=== PATIENT | female | born 1995 | race Caucasian/White ===

== ENCOUNTER 2018-02-19 00:43 | Emergency (ER) | payer SELFPAY ==
[2018-02-19] MEDS ORDERED: TOBRAMYCIN SULF 0.3% OPTH OINT ONE (01:33)
[2018-02-19] MEDS ORDERED: TETRACAINE HCL 0.5% 2ML OPTH ONE (01:33)
[2018-02-19] MEDS ORDERED: FLUORESCEIN SODIUM 0.6 MG/WRAP ONE (01:34)
--- NOTE | 2018-02-19 01:49 | ER ---
Nurse's Notes [facility] Name: Aleshia Murphy Age: 22 yrs Sex: Female : 1995 Arrival Date: 02/19/2018 Time: 00:45 Bed 16 Private MD: Diagnosis: Injury of conjunctiva and corneal abrasion without foreign body Presentation: 02/19 00:54 Presenting complaint: Patient states: she slept in her contact lens 3 days ago and has aa1 been having redness, irritation, \T\ swelling to her R eye. Transition of care: patient was not received from another setting of care. Onset of symptoms was February 15, 2018. Risk Assessment: Do you want to hurt yourself or someone else? Patient reports no desire to harm self or others. Initial Sepsis Screen: Does the patient meet any 2 criteria? No. Patient's initial sepsis screen is negative. Does the patient have a suspected source of infection? No. Patient's initial sepsis screen is negative. Care prior to arrival: None. 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 - Social history:: Smoking status: Patient uses tobacco products, smokes one-half pack cigarettes per day. - Ebola Screening: : No symptoms or risks identified at this time. Screenin:58 Abuse screen: Denies threats or abuse. Denies injuries from another. Nutritional aa1 screening: No deficits noted. Tuberculosis screening: No symptoms or risk factors identified. Fall Risk None identified. Assessment: 00:58 General: Appears in no apparent distress. comfortable, Behavior is calm, cooperative, aa1 appropriate for age. Pain: Complains of pain in right eye. Neuro: Level of Consciousness is awake, alert, obeys commands, Oriented to person, place, time, situation, Gait is steady, Pupils are PERRLA. Respiratory: Airway is patent Respiratory effort is even, unlabored, Respiratory pattern is regular, symmetrical. GI: No signs and/or symptoms were reported involving the gastrointestinal system. : No signs and/or symptoms were reported regarding the genitourinary system. EENT: Sclera/Cornea are reddened in right eye Lid(s) swelling noted to R eye. Derm: Skin is intact, is healthy with good turgor, Skin is pink, warm \T\ dry. Musculoskeletal: Circulation, motion, and sensation intact. Capillary refill < 3 seconds. 01:57 Reassessment: No changes from previously documented assessment. Patient is alert, bb oriented x 3, equal unlabored respirations, skin warm/dry/pink. pt verbalized understanding of and agrees to plan of care discharge instructions given pt ambulated with steady gait to exit. Vital Signs: 00:56 BP 129 / 91; Pulse 102; Resp 18; Temp 98.1; Pulse Ox 96% on R/A; Weight 108.86 kg; aa1 Height 5 ft. 2 in. (157.48 cm); Pain 7/10; 01:58 BP 132 / 74; Pulse 91; Resp 16 S; Pulse Ox 97% on R/A; bb 00:56 Body Mass Index 43.90 (108.86 kg, 157.48 cm) aa1 ED Course: 00:45 Patient arrived in ED. ds1 00:54 Viktoria Post RN is Primary Nurse. aa1 00:55 Triage completed. aa1 00:56 Arm band placed on right wrist. Patient placed in an exam room, on a stretcher. aa1 00:58 [facility]C [facility]. snw 00:58 Farshad Morse MD is Attending Physician. snw 00:58 Patient has correct armband on for positive identification. Bed in low position. Call aa1 light in reach. Pulse ox on. NIBP on. 01:53 Assist provider with eye exam of right eye. using fluorescein stain, Performed by alecia STACK Patient tolerated well. 01:57 Patient did not have IV access during this emergency room visit. bb Administered Medications: 01:53 Drug: Fluorescein Strip 1 strip Route: Ophthalmic; Site: right eye; alecia 01:58 Follow up: Response: No adverse reaction bb 01:53 Drug: Tetracaine Drops 0.5 % 1 drops Route: Ophthalmic; Site: right eye; alecia 01:58 Follow up: Response: No adverse reaction bb 01:53 Drug: Tobrex 0.3 % 1 application Route: Ophthalmic; Site: right eye; bb 01:58 Follow up: Response: No adverse reaction bb Outcome: 01:49 Discharge ordered by . ty 01:57 Discharged to home ambulatory. bb 01:57 Condition: stable 01:57 Discharge instructions given to patient, Instructed on discharge instructions, follow up and referral plans. medication usage, Demonstrated understanding of instructions, follow-up care, medications, Prescriptions given X 2. 01:59 Patient left the ED. bb Signatures: Viktoria Post, RN RN aa1 Rosa Hughes, HEAD START DIRECTOR-C HEAD START DIRECTOR-Noemy Bocanegra ds1 Melinda Estrada RN RN bb
--- NOTE | 2018-02-19 01:50 | EDPHYS ---
Physician Documentation [facility] Name: Aleshia Murphy Age: 22 yrs Sex: Female : 1995 Arrival Date: 02/19/2018 Time: 00:45 Bed 16 Private MD: ED Physician Farshad Morse HPI: 02/19 01:28 This 22 yrs old Female presents to ER via Ambulatory with complaints of Eye snw Swelling, Redness of Eye. 01:28 The patient is experiencing redness, swelling, to the right eye. Onset: The snw symptoms/episode began/occurred gradually, 3 day(s) ago, and became worse and became persistent. Duration: the symptoms are continuous. Associated signs and symptoms: Pertinent positives: headache. Patient wears soft contacts. Severity of symptoms: At their worst the symptoms were moderate. The patient has not experienced similar symptoms in the past. It is unknown whether or not the patient has recently seen a physician. left contacts in too long, removed and is wearing glasses. 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 - Social history:: Smoking status: Patient uses tobacco products, smokes one-half pack cigarettes per day. - Ebola Screening: : No symptoms or risks identified at this time. ROS: 01:27 Constitutional: Negative for fever, chills, and weight loss, ENT: Negative for injury, snw pain, and discharge, Neck: Negative for injury, pain, and swelling, Cardiovascular: Negative for chest pain, palpitations, and edema, Respiratory: Negative for shortness of breath, cough, wheezing, and pleuritic chest pain, Abdomen/GI: Negative for abdominal pain, nausea, vomiting, diarrhea, and constipation, Back: Negative for injury and pain, : Negative for injury, bleeding, discharge, and swelling, MS/Extremity: Negative for injury and deformity, Skin: Negative for injury, rash, and discoloration, Neuro: Negative for headache, weakness, numbness, tingling, and seizure. 01:27 Eyes: Positive for redness, swelling. Exam: 01:26 Constitutional: This is a well developed, well nourished patient who is awake, alert, snw and in no acute distress. Head/Face: Normocephalic, atraumatic. ENT: Nares patent. No nasal discharge, no septal abnormalities noted. Tympanic membranes are normal and external auditory canals are clear. Oropharynx with no redness, swelling, or masses, exudates, or evidence of obstruction, uvula midline. Mucous membranes moist. Neck: Trachea midline, no thyromegaly or masses palpated, and no cervical lymphadenopathy. Supple, full range of motion without nuchal rigidity, or vertebral point tenderness. No Meningismus. Chest/axilla: Normal chest wall appearance and motion. Nontender with no deformity. No lesions are appreciated. Cardiovascular: Regular rate and rhythm with a normal S1 and S2. No gallops, murmurs, or rubs. Normal PMI, no JVD. No pulse deficits. Respiratory: Lungs have equal breath sounds bilaterally, clear to auscultation and percussion. No rales, rhonchi or wheezes noted. No increased work of breathing, no retractions or nasal flaring. Abdomen/GI: Soft, non-tender, with normal bowel sounds. No distension or tympany. No guarding or rebound. No evidence of tenderness throughout. Back: No spinal tenderness. No costovertebral tenderness. Full range of motion. Skin: Warm, dry with normal turgor. Normal color with no rashes, no lesions, and no evidence of cellulitis. MS/ Extremity: Pulses equal, no cyanosis. Neurovascular intact. Full, normal range of motion. Neuro: Awake and alert, GCS 15, oriented to person, place, time, and situation. Cranial nerves II-XII grossly intact. Motor strength 5/5 in all extremities. Sensory grossly intact. Cerebellar exam normal. Normal gait. 01:26 Eyes: Periorbital structures: swelling, that is mild, that is moderate, on the right upper eyelid and right lower eyelid, Pupils: equal, round, and reactive to light and accomodation, right pupil is approximately 4 mm(s), left pupil is approximately 4 mm(s), Extraocular movements: no acute changes, Conjunctiva: chemosis, injected, in the right eye, Sclera: no appreciated abnormality. Vital Signs: 00:56 BP 129 / 91; Pulse 102; Resp 18; Temp 98.1; Pulse Ox 96% on R/A; Weight 108.86 kg; aa1 Height 5 ft. 2 in. (157.48 cm); Pain 7/10; 01:58 BP 132 / 74; Pulse 91; Resp 16 S; Pulse Ox 97% on R/A; bb 00:56 Body Mass Index 43.90 (108.86 kg, 157.48 cm) aa1 Procedures: 01:43 Eye Exam: Fluorescein. snw MDM: 01:19 Patient medically screened. snw 01:51 Data reviewed: vital signs, nurses notes. Data interpreted: Pulse oximetry: on room air snw is 96 %. Interpretation: acceptable. Counseling: I had a detailed discussion with the patient and/or guardian regarding: the historical points, exam findings, and any diagnostic results supporting the discharge/admit diagnosis, the need for outpatient follow up, to return to the emergency department if symptoms worsen or persist or if there are any questions or concerns that arise at home. Special discussion: I discussed in detail with the patient the higher chance of wound infection based on his presenting history. Based on the history and exam findings, there is no indication for further emergent testing or inpatient evaluation. I discussed with the patient/guardian the need to see the opthamologist for further evaluation of the symptoms. Administered Medications: 01:53 Drug: Fluorescein Strip 1 strip Route: Ophthalmic; Site: right eye; bb 01:58 Follow up: Response: No adverse reaction bb 01:53 Drug: Tetracaine Drops 0.5 % 1 drops Route: Ophthalmic; Site: right eye; bb 01:58 Follow up: Response: No adverse reaction bb 01:53 Drug: Tobrex 0.3 % 1 application Route: Ophthalmic; Site: right eye; bb 01:58 Follow up: Response: No adverse reaction bb Disposition: 03:36 Co-signature as Attending Physician, Farshad Morse MD. pkl Disposition: 02/19/18 01:49 Discharged to Home. Impression: Injury of conjunctiva and corneal abrasion without foreign body. - Condition is Stable. - Discharge Instructions: Corneal Abrasion. - Prescriptions for Vigamox 0.5 % Ophthalmic Drops - instill 1 drop by OPHTHALMIC route every 8 hours for 7 days; 5 milliliter. Diclofenac Sodium 75 mg Oral Tablet Sustained Release - take 1 tablet by ORAL route 2 times per day; 30 tablet. - Work release form, Medication Reconciliation Form, Thank You Letter, Antibiotic Education, Prescription Opioid Use form. - Follow up: Private Physician; When: 2 - 3 days; Reason: Recheck today's complaints, Continuance of care, Re-evaluation by your physician. Follow up: Emergency Department; When: As needed; Reason: Worsening of condition. - Problem is new. - Symptoms have worsened. Signatures: Viktoria Post, RN RN aa1 Farshad Morse MD MD pkl Rosa Hughes, MANAGER SOCIAL SERVICES-C MANAGER SOCIAL SERVICES-Csnw Melinda Estrada, ADILIA RN bb Corrections: (The following items were deleted from the chart) 01:59 01:49 02/19/2018 01:49 Discharged to Home. Impression: Injury of conjunctiva and bb corneal abrasion without foreign body. Condition is Stable. Forms are Medication Reconciliation Form, Thank You Letter, Antibiotic Education, Prescription Opioid Use. Follow up: Private Physician; When: 2 - 3 days; Reason: Recheck today's complaints, Continuance of care, Re-evaluation by your physician. Follow up: Emergency Department; When: As needed; Reason: Worsening of condition. Problem is new. Symptoms have worsened. snw
== END 2018-02-19 01:59 | disposition home or self-care (01) ==
LOC: ER 00:43
DX: S05.01XA Injury of conjunctiva and corneal abrasion without foreign body, right eye, initial encounter (principal); X58.XXXA Exposure to other specified factors, initial encounter; Y93.9 Activity, unspecified; Y92.9 Unspecified place or not applicable
CPT/HCPCS: 99284